=== PATIENT | female | born 1945 | race Caucasian/White ===

== ENCOUNTER → 2018-09-16 | Outpatient (CLI) | payer MEDICARE ==
[~2018-09-16] MED LIST: IBUP1TAB11 PO; LEVO88TA4 PO; NUTRAFOL PO; ROSU10TA2 PO; VIT1TABL32 PO; VITAMIN D3 PO
[2018-09-16 13:33] LABS: BASOPHILS # (AUTO) 0.06 x10^3/uL (0-0.1); BASOPHILS % (AUTO) 1 % (0-1); EOSINOPHILS # (AUTO) 0.11 x10^3/uL (0-0.4); EOSINOPHILS % (AUTO) 1 % (1-7); LYMPHOCYTES # (AUTO) 2.16 x10^3/uL (1-3.4); LYMPHOCYTES % (AUTO) 26 % (22-44); MD NO; MEAN CORPUSCULAR HEMOGLOBIN 31.3 pg (27.0-34.8); MEAN CORPUSCULAR HGB CONC 33.9 g/dL (32.4-35.8); MEAN CORPUSCULAR VOLUME 92.4 fL (80-100); MEAN PLATELET VOLUME 8.3 fL (7.4-10.4); MONOCYTES # (AUTO) 0.41 x10^3/uL (0.2-0.8); MONOCYTES % (AUTO) 5 % (2-9); NEUTROPHILS # (AUTO) 5.69 x10^3/uL (1.8-6.8); NEUTROPHILS % (AUTO) 68 % (42-75); PLATELET COUNT 235 x10^3/uL (130-400); RED BLOOD COUNT 5.18 x10^6/uL (3.82-5.3); RED CELL DISTRIBUTION WIDTH 12.9 % (9.6-15.2)
[2018-09-16 13:41] LABS: ANION GAP 4 mmol/L (5-15); CALCIUM 9.1 mg/dL (8.5-10.1); CHLORIDE 109 mmol/L (98-107); CREATININE 0.91 mg/dL (0.55-1.02)
== END | disposition home or self-care (01) ==
LOC: STAR 12:37
PROVIDERS: ATTEND Obstetrics & Gynecology Female Pelvic Medicine and Reconstructive Surgery
DX: Z01.818 Encounter for other preprocedural examination (principal); N81.10 Cystocele, unspecified; N39.3 Stress incontinence (female) (male); R94.31 Abnormal electrocardiogram [ECG] [EKG]; Z88.8 Allergy status to other drugs, medicaments and biological substances
CPT/HCPCS: 36415; 71046; 80048; 85025; 93005

== ENCOUNTER 2018-10-12 05:38 | Day surgery (SDC) | payer MEDICARE ==
[~2018-10-12] VITALS: Ht 162.6 cm; Wt 57.8 kg
[2018-10-12] MEDS ORDERED: LACTATED RINGERS 1,000 ML IV SCH ×2 (06:03→10:09)
[2018-10-12] MEDS ORDERED: FENTANYL PF 250 MCG/5ML ONE (06:52)
[2018-10-12] MEDS ORDERED: MIDAZOLAM 1 MG/ML, 2ML ONE (06:52)
[2018-10-12] MEDS ORDERED: FAMOTIDINE 20 MG TABLET PO ONE (07:00)
[2018-10-12] MEDS ORDERED: ACETAMINOPHEN 500 MG TABLET PO ONE (07:00)
[2018-10-12] MEDS ORDERED: GABAPENTIN 300 MG CAPSULE PO ONE (07:00)
[2018-10-12] MEDS ORDERED: BUPIVACAINE/PF 0.25% ONE (07:10)
[2018-10-12] MEDS ORDERED: EPINEPHRINE 1 MG/ML, 1ML ONE (07:10)
[2018-10-12] MEDS ORDERED: THROMBIN 20,000 UNIT VIAL TP ONE (07:10)
[2018-10-12] MEDS ORDERED: INDIGO CARMINE 0.8%, 5ML ONE (07:10)
[2018-10-12] MEDS ORDERED: NEOMY/POLYMYXIN B GU IRR. 1 ML ONE (07:11)
[2018-10-12] MEDS ORDERED: CEFAZOLIN 1,000 MG ONE (07:31)
[2018-10-12] MEDS ORDERED: ROCURONIUM 10MG/ML,5ML ONE (08:05)
[2018-10-12] MEDS ORDERED: METOPROLOL 1 MG/ML, 5ML ONE (08:05)
[2018-10-12] MEDS ORDERED: ONDANSETRON 2MG/ML, 2ML ONE (08:05)
[2018-10-12] MEDS ORDERED: DEXAMETHASONE 4 MG/ML, 1ML ONE (08:05)
[2018-10-12] MEDS ORDERED: PROPOFOL 10 MG/ML, 20ML ONE (08:05)
[2018-10-12] MEDS ORDERED: FENTANYL PF 100 MCG/2ML IV PRN (09:00)
[2018-10-12] MEDS ORDERED: ONDANSETRON 2MG/ML, 2ML IV PRN (09:00)
[2018-10-12] MEDS ORDERED: LABETALOL 5MG/ML, 20ML IV PRN (09:00)
[2018-10-12] MEDS ORDERED: HYDROmorphone 2 MG/ML, 1ML IVPush PRN (09:00)
[2018-10-12] MEDS ORDERED: PROMETHAZINE 25 MG/ML, 1ML IV PRN (09:00)
[2018-10-12] MEDS ORDERED: MEPERIDINE/PF 25MG/0.5ML IVPush PRN (09:00)
[2018-10-12] MEDS ORDERED: OXYcodone 5 MG/5 ML ORAL.SOL UDC PO PRN (09:00)
[2018-10-12] MEDS ORDERED: hydrALAzine 20 MG/ML, 1ML IV PRN (09:00)
[2018-10-12] MEDS ORDERED: HYDROcodone/APAP 5/325 TABLET PO PRN (10:30)
[2018-10-12] MEDS ORDERED: PROMETHAZINE 12.5 MG SUPP PR ONE (10:30)
[2018-10-12] MEDS ORDERED: IBUPROFEN 600 MG TABLET PO PRN (10:30)
[2018-10-12] MEDS ORDERED: ONDANSETRON 2MG/ML, 2ML IVPush PRN (10:30)
== END 2018-10-12 15:30 | disposition home or self-care (01) ==
LOC: OUT 05:38
PROVIDERS: ATTEND Obstetrics & Gynecology Female Pelvic Medicine and Reconstructive Surgery
DX: N39.3 Stress incontinence (female) (male) (principal); N81.5 Vaginal enterocele; N81.10 Cystocele, unspecified; N32.81 Overactive bladder; Z98.890 Other specified postprocedural states; Z90.722 Acquired absence of ovaries, bilateral
CPT/HCPCS: 57282; 57288; C1771; C1781; J0171; J0690; J1100; J2250; J2405; J2704; J3010; J3490; J7120